=== PATIENT | female | born 1975 | race Caucasian/White ===

== ENCOUNTER 2023-11-22 14:03 | Outpatient (CLI) | payer MEDICAID, SELFPAY ==
--- NOTE | 2023-11-22 14:15 | ECG_ITS ---
APPROVED REPORT Exam: Resting ECG HR:66 bpm ECG Measurements Heart Rate 66 AXES GA 121 P 77 QRSd 84 QRS 92 QT 363 T 80 QTc 376 Conclusion SINUS RHYTHM BORDERLINE RIGHT AXIS DEVIATION [QRS AXIS > 90] BORDERLINE ECG UNCONFIRMED REPORT Electronically signed by : Darrel Anthony MD 11/22/2023 17:00:57
--- NOTE | 2023-11-22 14:25 | XR_ITS ---
FINAL REPORT CLINICAL HISTORY: Pre-operative testing FINDINGS: There is no evidence of effusion or other pleural disease. The mediastinum has a normal appearance. The cardiac silhouette is unremarkable. IMPRESSION: Unremarkable chest exam. Reviewed, Interpreted and Dictated by Tawanna Garvey MD Transcribed by Flores White Authenticated and . [facility]
[2023-11-22 14:47] LABS: Basophils # 0.1 K/mm3 (0-0.2); Eosinophils # 0.3 K/mm3 (0.0-0.4); Eosinophils % 3.1 % (0.1-12.0); Hematocrit 41.5 % (37.0-47.0); Lymphocytes # 2.3 K/mm3 (0.7-4.5); Mean Corpuscular HGB Conc 33.7 g/dL (31.8-35.4); Mean Corpuscular Hemoglobin 32.4 pg (27.0-31.2); Mean Corpuscular Volume 96.1 fl (81-99); Mean Platelet Volume 8.2 fl (7.4-10.4); Monocytes # 0.6 K/mm3 (0.1-1.0); Monocytes % 7.2 % (1.7-9.3); Neutrophils % 60.6 % (37.0-80.0); Platelet Count 265 K/mm3 (142-424); Red Blood Count 4.32 M/mm3 (4.20-5.40); Red Cell Distribution Width 13.1 % (11.5-17.5); White Blood Count 8.3 K/mm3 (4.8-10.8)
[2023-11-22 15:21] LABS: Chloride 106 mmol/L (98-107); Potassium 4.3 mmoL/L (3.5-5.1); Sodium 139 mmol/L (136-145)
[2023-11-22 15:24] LABS: Alanine Aminotransferase 17 U/L (12-78); Albumin Level 4.1 g/dl (3.5-5.0); Albumin/Globulin Ratio 1.5 (1.1-1.8); Alkaline Phosphatase 82 U/L (38-126); Anion Gap 10.3 mEq/L (5-15); Aspartate Amino Transferase 23 U/L (14-36); Bilirubin,Total 0.5 mg/dl (0.2-1.3); Blood Urea Nitrogen 11 mg/dl (7-17); Calcium 9.3 mg/dl (8.4-10.2); Carbon Dioxide 27 mmol/L (22.0-30.0); Estimated Glomerular Filt Rate 89 ml/min (>60); GFR (African American) 108 ML/MIN (>60); Globulin 2.8 g/dL (1.3-3.2); Glucose 95 mg/dl (74-100); Total Protein,Serum 6.9 g/dl (6.3-8.2)
== END 2023-11-22 23:59 ==
PROVIDERS: PCP Physician Assistant; Visit Provider Podiatrist
DX: Z01.818 Encounter for other preprocedural examination (principal); L72.0 Epidermal cyst; R60.9 Edema, unspecified
CPT/HCPCS: 36415; 71046; 80053; 85025; 93005

== ENCOUNTER 2023-11-29 10:33 | Day surgery (SDC) | payer MEDICAID, SELFPAY ==
[2023-11-29 10:46] VITALS: BP 137/78; PULSE 76; RESP 18; TEMP 36.3; O2SAT 98; BMI 26.4
[2023-11-29] MEDS: LIDOCAINE 1% W/EPI 1:100,000 20ML VIAL 20 ML (11:14)
[2023-11-29] MEDS: BUPIVACAINE 0.5% 10ML VIAL 50 MG (11:14)
[2023-11-29 11:45] VITALS: BP 125/69; PULSE 78; RESP 16; TEMP 36.6; O2SAT 98
--- NOTE | 2023-11-29 12:07 | P.OP_ITS ---
Date of procedure: 11/29/23 Pre-op Diagnosis:: Dermal cyst left heel, painful, recurrent Post-op Diagnosis:: same Procedure performed:: excision skin with dermal cyst, en toto, plantar left heel. Surgeon:: Milan Morgan DPM Anesthesia: local (15cc of 50/50 mix 0.5% marcaine, 1% lidocaine with epi) Estimated blood loss (mL): 1 Operative findings:: Dermal lesion/cyst left plantar heel Operative note:: Patient was seen in pre-operative holding area, in good spirits. Discussed planned procedure; opportunity to ask questions was provided to patient satisfaction. She consents for local anesthetic and procedure. Wheeled to operating room; stays on [place] in supine position. Local block administered plantar heel left foot, facilitated by use of [place]. Then scrubbed, prepped, draped patient, exposing only the surgically marked foot. Confirmed anesthesia was successful, patient's surgical area was numb before making incision. Two converging semi-elliptical incisions are made over the thickened hyperkeratotic skin plantar heel, deepened through dermis to subcutaneous tissue and ellipsed en toto, with skin ellipse with all dermal tissues included 2.5cm length x 1.2cm wide. Inspected deep tissues of subcutaneous level and no chantal dence of free floating dermal cyst remained in tissues. Suture closure with 2-0 Nylon in mattress suture technique. Covered with Xeroform, gauze, Kerlix, elastic bandage. Wheeled to same day post surgery with vital signs stable. Risk of dehiscence is discussed with patient if she is on foot much at all. Needs rest, elevation, off-loading to help healing. Follow in office in 6 days. Call if any concerns. Patient has my office number and cell number. Tourniquet time (min): 0 Condition: stable Disposition: same day Specimens:: Skin/dermal cyst Complications:: negative
--- NOTE | 2023-11-29 12:10 | SUR.OPER ---
vitals signs prior to start of procedure: 1112- 174/79, 98% RA, 72 HR. Vital signs after procedure stop: 1142- 154/74, 97% RA, 72 HR. VSS in post op.
== END 2023-11-29 11:57 | disposition home or self-care (01) ==
LOC: OR 10:34
PROVIDERS: PCP Physician Assistant; Visit Provider Podiatrist
PROC: (CPT 11423; principal; 2023-11-29 11:15)
DX: D23.72 Other benign neoplasm of skin of left lower limb, including hip (principal)
CPT/HCPCS: 11423